=== PATIENT | female | born 1940 | race Caucasian/White ===

== ENCOUNTER 2021-10-09 14:00 | Emergency (ER) | payer OTHER, SELFPAY ==
[2021-10-09 14:02] VITALS: BP 121/71; PULSE 65; RESP 14; TEMP 36.9; O2SAT 92; BMI 26.4
--- NOTE | 2021-10-09 14:25 | EX.ED.DYSGE1 ---
HPI History of Present Illness Chief Complaint: General Illness Informant: patient and family Onset/Context/Timing Onset: Days (4) Context: Gradual Onset Timing: Continuous Quality: Weakness Location: Generalized Worsened by: Standing Relieved by: Nothing Narrative Narrative: Patient presents with 2 syncopal episodes that occurred today. Patient states she started feeling ill over the last 4 days. Patient states she feels weak all over. Patient states it is worse with standing. Patient admits to some fevers and chills. Patient also admits to breaking out into a sweat this morning. Patient admits to a cough and a mild headache. Patient states that she was recently exposed to people with COVID-19. Patient denies any chest pain or palpitations. EMS checked a blood sugar and it was normal. EMS placed the patient on oxygen because her pulse oximeter was 92% on room air on their arrival. PFSH PFS Medical History Hx TIA/stroke w/o resid Home Medications meclizine 25 mg tablet 25 mg PO TID PRN PRN VERTIGO #20 tabs 01/27/17 [Rx Last Taken Unknown] nirmatrelvir 300 mg (150 mg x2)-ritonavir 100 mg tablet,dose pack(EUA) (Paxlovid) See Rx Instructions PO .COMPLEX #30 tabs 10/09/21 [Rx Last Taken Unknown] Allergy/AdvReac Type Severity Reaction Status Date / Time No Known Allergies Allergy Verified 10/09/21 14:01 Surgical History no surgical history no surgical history Social History Smoking Status: Never smoker ROS ROS ED Constitutional Constitutional ED: Reports fever(s), subjective and sweats Eyes Eyes: Denies blurry vision or change in vision ENT ENT ED: Denies rhinorrhea or sore throat Cardiovascular Cardiovascular: Denies chest pain or palpitations Respiratory/Chest Respiratory/Chest: Reports cough; Denies dyspnea Gastrointestinal Gastrointestinal: Denies nausea or vomiting Genitourinary Genitourinary ED: Denies dysuria or hematuria Musculoskeletal Musculoskeletal: Denies back pain or neck pain Integumentary Denies abscess or rash Neurologic Neurologic: Reports headache(s); Denies weakness Allergic/Immunologic Allergic/Immunologic ED: Denies mouth swelling or urticaria EXAM Physical Exam Const Vital Signs: 10/09/21 14:02 10/09/21 14:13 10/09/21 14:51 Temperature 98.5 F Temperature Source Oral Pulse Rate 65 65 Pulse Rate [Lying] Pulse Rate [Sitting (for 1 minute prior to obtaining)] Pulse Rate [Standing (for 1 minute prior to obtaining)] Respiratory Rate 14 18 Respiratory Pattern Normal Blood Pressure 121/71 H Blood Pressure [Lying] Blood Pressure [Sitting (for 1 minute prior to obtaining)] Blood Pressure [Standing (for 1 minute prior to obtaining)] Blood Pressure Mean 87 Blood Pressure Mean [Lying] Blood Pressure Mean [Sitting (for 1 minute prior to obtaining)] Blood Pressure Mean [Standing (for 1 minute prior to obtaining)] Pulse Ox 92 Oxygen Delivery Method Room Air 10/09/21 15:24 10/09/21 16:02 Temperature Temperature Source Pulse Rate 75 Pulse Rate [Lying] 77 Pulse Rate [Sitting (for 1 minute prior to obtaining)] 77 Pulse Rate [Standing (for 1 minute prior to obtaining)] 80 Respiratory Rate 16 Respiratory Pattern Blood Pressure 124/67 H Blood Pressure [Lying] 117/63 Blood Pressure [Sitting (for 1 minute prior to obtaining)] 118/62 Blood Pressure [Standing (for 1 minute prior to obtaining)] 112/68 Blood Pressure Mean 86 Blood Pressure Mean [Lying] 81 Blood Pressure Mean [Sitting (for 1 minute prior to obtaining)] 80 Blood Pressure Mean [Standing (for 1 minute prior to obtaining)] 82 Pulse Ox 95 Oxygen Delivery Method Room Air Positive well nourished and well developed General Appearance ED: well developed HEENT Reports moist mucous membranes Neck supple and no JVD Resp normal respiratory effort and clear to auscultation bilaterally Cardio regular rate, regular rhythm and no murmurs GI normal to inspection, nondistended, normoactive bowel sounds and non-tender Palpation: soft Extremity normal to inspection General Extremety ED: Negative for edema or tenderness General Extremity: Negative for edema Neuro oriented x3, CN's II-XII intact bilaterally and no sensory deficits noted Sensorium / Orientation: alert Motor Exam: strength 5/5 throughout Psych mental status grossly normal Skin no rashes or lesions noted MDM MDM MDM Narrative Medical decision making narrative: EKG was obtained. On my interpretation, it showed a normal sinus rhythm with a rate of 68. SC interval, QRS interval, and QTc intervals were all normal. [place] was normal. There are no acute ST or T wave changes. Portable 1 view chest x-ray was obtained. On my interpretation, lung groves are clear. There is normal cardiac silhouette. Bony thorax is normal. There is no acute process noted. Radiologist also interpreted the x-ray and agrees. CBC was within normal limits. Comprehensive metabolic profile was essentially within normal limits. Anion gap was normal. High-sensitivity troponin was normal. COVID-19 rapid antigen was obtained and was positive. Alysis does not show any evidence of urinary tract infection or hematuria. Patient was given a prescription for Paxlovid. D-dimer was elevated at 1.34. PT was INR and PTT were within normal limits. Because of the elevated D-dimer, CTA of the chest was obtained. Results will be followed by the oncoming physician. Patient understood and was agreeable with the plan. All questions were answered. Lab Data Attestation: I reviewed the patient's lab results. Labs: Laboratory Results - last 24 hr 10/09/21 10/09/21 10/09/21 14:30 14:30 14:30 WBC 4.5 RBC 4.25 Hgb 13.1 Hct 38.9 MCV 91.5 MCH 30.8 MCHC 33.7 RDW Std Deviation 42.7 RDW Coeff of Yu 12.7 Plt Count 198 MPV 8.7 Immature Gran % (Auto) 0.200 Neut % (Auto) 64.0 Lymph % (Auto) 29.6 Graves % (Auto) 5.8 Eos % (Auto) 0.0 Baso % (Auto) 0.4 Absolute Neuts (auto) 2.9 Absolute Lymphs (auto) 1.34 Nucleated RBC % 0 PT Cancelled INR Cancelled APTT Cancelled D-Dimer Quant (PE/DVT) Cancelled Sodium 134 L Potassium 4.4 Chloride 102 Carbon Dioxide 28.0 Anion Gap 4 L BUN 16 Creatinine 1.02 Estim Creat Clear Calc 43.49 Est GFR (MDRD) Af Amer 67 Est GFR (MDRD) Non-Af 56 L BUN/Creatinine Ratio 15.7 Glucose 145 H Calcium 8.7 Total Bilirubin 0.30 AST 42 H ALT 31 Alkaline Phosphatase 76 Troponin I High Sens 7 Total Protein 7.0 Albumin 3.2 Globulin 3.8 Albumin/Globulin Ratio 0.8 L Urine Color Urine Clarity Urine pH Ur Specific [place] Urine Protein Urine Glucose (UA) Urine Ketones Urine Occult Blood Urine Nitrite Urine Bilirubin Urine Urobilinogen Ur Leukocyte Esterase Urine RBC Urine WBC Ur Squamous Epith Cells Urine Bacteria Urine Mucus 10/09/21 10/09/21 15:10 15:20 WBC RBC Hgb Hct MCV MCH MCHC RDW Std Deviation RDW Coeff of Yu Plt Count MPV Immature Gran % (Auto) Neut % (Auto) Lymph % (Auto) Graves % (Auto) Eos % (Auto) Baso % (Auto) Absolute Neuts (auto) Absolute Lymphs (auto) Nucleated RBC % PT 13.6 INR 1.1 APTT 33.0 D-Dimer Quant (PE/DVT) 1.34 H* Sodium Potassium Chloride Carbon Dioxide Anion Gap BUN Creatinine Estim Creat Clear Calc Est GFR (MDRD) Af Amer Est GFR (MDRD) Non-Af BUN/Creatinine Ratio Glucose Calcium Total Bilirubin AST ALT Alkaline Phosphatase Troponin I High Sens Total Protein Albumin Globulin Albumin/Globulin Ratio Urine Color Straw Urine Clarity Clear Urine pH 7.0 Ur Specific [place] 1.005 Urine Protein Negative Urine Glucose (UA) Normal Urine Ketones Negative Urine Occult Blood Negative Urine Nitrite Negative Urine Bilirubin Negative Urine Urobilinogen Normal Ur Leukocyte Esterase Negative Urine RBC 0 SEEN Urine WBC 0 SEEN Ur Squamous Epith Cells 0 SEEN Urine Bacteria 0 SEEN Urine Mucus 0 SEEN Radiography Chest X-Ray - ED: 1 View, Read by ED Physician, Read by Radiologist and No Acute Disease Diagnostic Testing: Clinical Impression(s) from Imaging Studies Chest X-Ray 10/09/21 14:40 IMPRESSION: No acute cardiopulmonary process identified. Electronically Signed: Kandice Alcala MD at 15:07 EDT , EKG Initial EKG: Attestation: I personally reviewed and interpreted this EKG as follows: Interpretation: Sinus Rhythm (68) and No Acute Injury Pattern Prior EKG tracings: available for review Prior: Unchanged (01/26/2017) Discharge Plan Triage Chief Complaint: General Illness Other Complaint: Syncope ED Provider: Matt Jack Dx/Rx/DC Orders Clinical Impression: COVID-19, Episode of generalized weakness Instructions: Coronavirus Disease 2019 (COVID-19): Caring for Yourself or Others Prescriptions: New Paxlovid (EUA) 300 mg (150 mg x 2)-100 mg tablets,dose pack See Rx Instructions .ROUTE .COMPLEX Qty: 30 0RF Rx Instructions: take TWO 150 mg tablets of nirmatrelvir with ONE 100 mg tablet of ritonavir twice daily for 5 days No Action meclizine 25 MG tablet 25 mg PO TID PRN PRN (Reason: VERTIGO) Qty: 20 0RF Primary Care Provider: Oziel Parks Referrals: Oziel Parks DO [Primary Care Provider] - 5-7 Days Disposition Disposition: Home, Self Care
--- NOTE | 2021-10-09 14:28 | EKG12_ITS ---
Test Reason : Blood Pressure : / mmHG Vent. Rate : 068 BPM Atrial Rate : 068 BPM P-R Int : 158 ms QRS Dur : 076 ms QT Int : 396 ms P-R-T Axes : 079 055 082 degrees QTc Int : 421 ms Normal sinus rhythm Normal ECG Confirmed by BRIANDA GUEVARA, MARCO ANTONIO ([id number]), editor index AGA CLARK ([id number]) on 10/10/2021 1:47:27 PM Referred By: Confirmed By:MARCO ANTONIO LAMAR MD
--- NOTE | 2021-10-09 14:40 | RAD_ITS ---
HISTORY: Cough. TECHNIQUE: XR Chest 1 View. COMPARISON: 01/26/2017. FINDINGS: CARDIOMEDIASTINAL BORDERS: Cardiac silhouette within normal limits in size. Mediastinal contour unremarkable. LUNGS: Radiographically clear. PLEURA: No pleural effusion or pneumothorax seen. OSSEOUS STRUCTURES: Unremarkable. RAD/Chest 1 View (Portable) IMPRESSION: No acute cardiopulmonary process identified. Electronically Signed: Kandice Alcala MD at 15:07 EDT ,
[2021-10-09 14:44] LABS: Absolute Lymphocyte Count 1.34 X10^3/uL (0.83-4.51); Absolute Neutrophil Count 2.9 X10^3/uL (2.0-7.7); Basophil# 0.02 X10^3/uL; Basophil% 0.4 % (0-1); Hematocrit 38.9 % (37-47); Hemoglobin 13.1 g/dL (12.0-15.0); Lymphocyte # 1.34 X10^3/ul (0.83-4.51); Lymphocyte % 29.6 % (19-41); Mean Corp Hgb Conc 33.7 g/dL (32-36); Mean Corpuscular Hgb 30.8 pg (27.0-32.0); Mean Corpuscular Volume 91.5 fL (81-99); Mean Platelet Vol. 8.7 fl (6.2-12.0); Monocyte# 0.26 X10^3/uL; Monocyte% 5.8 % (0-10); NRBC Flagged by Analyzer 0 % (0-5); Neutrophil # 2.89 X10^3/uL (2.7-7.7); Platelet Count 198 K/mm3 (150-450); RBC Distribution Width CV 12.7 % (11.6-14.6); RBC Distribution Width SD 42.7 fl (35.1-43.9); Red Blood Count 4.25 M/mm3 (4.2-5.4); White Blood Count 4.5 K/mm3 (4.4-11.0)
[2021-10-09 14:51] VITALS: PULSE 65; RESP 18
[2021-10-09] MEDS: Ipratropium/Albuterol Sulfate 3 ML AMPUL.NEB INHALATION (14:51)
[2021-10-09 15:09] LABS: ALB/GLOB Ratio 0.8 RATIO (0.9-2.4); AST(SGOT) 42 U/L (15-37); Alanine Aminotransfer ALT/SGPT 31 U/L (13-56); Albumin, Serum 3.2 g/dL (3.2-5.0); Alkaline Phosphatase 76 U/L (45-117); Anion Gap 4 (5-15); BUN 16 mg/dL (7-18); BUN/Creat Ratio 15.7 RATIO (10-20); Calcium,Total 8.7 mg/dL (8.5-10.1); Chloride 102 mmol/L (98-107); Creatinine, Serum 1.02 mg/dL (0.55-1.02); EST Glomerular Filtration Rate 56 mL/min (>60); Est Glom Filt Rate - Afr Amer 67 mL/min (>60); Estimated Creatinine Clearance 43.49 ml/min; Globulin 3.8 g/dL (2.2-4.2); Glucose 145 mg/dL (74-106); Potassium 4.4 mmol/L (3.5-5.1); Sodium Level 134 mmol/L (136-145); Troponin-I HS 7 pg/mL (3.0-54.0)
[2021-10-09 15:24] VITALS: BP 112/68; BP 117/63; BP 118/62; PULSE 77; PULSE 80
[2021-10-09 15:26] VITALS: O2SAT 98
[2021-10-09 15:27] LABS: Bacteria 0 SEEN /hpf (None Seen); Mucous, Urine 0 SEEN /hpf (<or=2+); Red Blood Cells-Urine 0 SEEN /hpf (0-5); Squamous Epithelial Cells - UA 0 SEEN /hpf (5-10); White Blood Cells 0 SEEN /hpf (0-5)
[2021-10-09 15:31] LABS: Color, Urine Straw (Yellow); Glucose, Dipstick Normal (Normal); Ketone-Dipstick Negative (Negative); Leukocyte Esterase-Dipstick Negative /ul (Negative); Nitrite-Dipstick Negative (Negative); Occult Blood-Urine Negative /ul (Negative); Protein-Dipstick Negative (Negative); Specific Gravity, Urine 1.005 (1.002-1.030); Urine Bilirubin Dipstick Negative (Negative); Urine Clarity Clear (Clear); Urine Urobilinogen Normal (Normal)
[2021-10-09 15:51] LABS: International Normalized Ratio 1.1; Prothrombin Time (Protime)PT. 13.6 SECONDS (11.7-14.9)
[2021-10-09 16:02] VITALS: BP 124/67; PULSE 75; RESP 16; O2SAT 95
[2021-10-09 16:27] LABS: D-Dimer Quantitative (DVT/PE) 1.34 FEU/ug/m (0.27-0.49)
--- NOTE | 2021-10-09 16:27 | CT_ITS ---
INDICATION: Elevated D-dimer EXAMINATION: CTA Chest WO/W Contrast Injection TECHNIQUE: Helically acquired images were obtained of the chest following administration of IV contrast. A radiation dose optimization technique was used for this scan. 3D postprocessing images including MIPS were reviewed. IV Contrast dosage and agent: IV 75mL Isovue-370 COMPARISON: 01/26/2017. FINDINGS: Lungs: Unremarkable Mediastinum: The cardiomediastinal silhouette is not enlarged. No mediastinal, hilar or axillary adenopathy. The thoracic aorta is unremarkable. No obvious filling defect seen within the visualized pulmonary arteries. Pleura: Unremarkable Bones/Soft tissues: Mild scattered degenerative changes of the visualized spine. Upper abdomen: The bilateral kidneys are partially imaged and demonstrate bilateral parapelvic cysts versus hydronephrosis. CT/CTA Chest W/WO Contrast IMPRESSION: No acute abnormalities in the chest. Specifically, no evidence of acute pulmonary emboli to the segmental level. Partial imaging of the kidneys demonstrate bilateral parapelvic cysts versus hydronephrosis. If clinically concerned for urinary obstruction, consider CT urogram. Electronically Signed: Hipolito Manjarrez MD at 16:57 EDT ,
[2021-10-09 17:46] VITALS: O2SAT 97
== END 2021-10-09 17:47 | disposition home or self-care (01) ==
PROVIDERS: Emergency Provider Emergency Medicine; PCP Family Medicine; Visit Provider Emergency Medicine
DX: U07.1 COVID-19 (principal); Z86.73 Personal history of transient ischemic attack (TIA), and cerebral infarction without residual deficits
CPT/HCPCS: 71045; 71275; 80053; 81001; 84484; 85025; 85379; 85610; 85730; 87428; 93005; 94640; 99285; Q9967; A4216

== ENCOUNTER → 2023-02-19 | Outpatient (CLI) | payer SELFPAY ==
--- NOTE | 2023-02-19 08:08 | CT_ITS ---
STUDY: CTA HEAD AND NECK WITH CONTRAST REASON FOR EXAM: Female, 82 years old. DIZZINESS, SYNCOPE RADIATION DOSAGE (If Supplied By Facility): CTDIvol = ( 28.91 ) mGy, DLP = ( 1394.37 ) mGycm TECHNIQUE: CT angiography was performed with a multi-detector CT scanner. Data acquisition was obtained from the skull base through the vertex following intravenous administration of IV 100mL Isovue-370. MIP images were reconstructed from the axial data set. Post-processing of the angiographic images was performed, with multiplanar reformation and 3D reconstruction. Individualized dose optimization techniques were used for this CT. COMPARISON: No relevant priors. FINDINGS: Normal bilateral petrous carotid arteries. There is calcified plaque formation of the right cavernous carotid artery, without a cross-sectional luminal stenosis. There is calcified plaque formation of the left cavernous carotid artery, without a cross-sectional luminal stenosis. Normal right A1 segments of the anterior cerebral artery. Normal left A1 segments of the anterior cerebral artery. Normal intact anterior communicating artery (ACOM). Normal bilateral A2 segments of the anterior cerebral arteries. Normal right M1 and M2 segments of the middle cerebral arteries, with a normal M1 bifurcation. Normal left M1 and M2 segments of the middle cerebral arteries, with a normal M1 bifurcation. Normal right posterior communicating artery (PCOM). Normal left posterior communicating artery (PCOM). Normal bilateral vertebral arteries. Normal basilar artery with a normal basilar bifurcation. The visualized bilateral superior cerebellar (SCA) arteries are normal. Normal bilateral P1, P2 and visualized P3 segments of the posterior cerebral arteries. There is no demonstrated aneurysm of the [place]. Mild cerebral atrophy. AORTIC ARCH: Normal visualized aortic arch. Normal origins of the brachiocephalic, left common carotid, and left subclavian arteries. RIGHT CAROTID ARTERIES: Normal right common carotid artery (CCA). Normal right common carotid bulb. Normal origin of the right internal carotid (ICA) artery without a hemodynamically significant stenosis. Normal visualized cervical portion of the right internal carotid artery. Normal origin of the right external carotid artery (ECA). LEFT CAROTID ARTERIES: Normal left common carotid artery (CCA). Normal left common carotid bulb. Normal origin of the left internal carotid (ICA) artery without a hemodynamically significant stenosis. Normal visualized cervical portion of the left internal carotid artery. Normal origin of the left external carotid artery (ECA). VERTEBRAL ARTERIES: Normal bilateral vertebral arteries. CT/CTA Head AND Neck W/ Contrast IMPRESSION: Normal CTA Head and neck with contrast. Electronically Signed: Benjamin Philip MD at 9:43 EST ,
[2023-02-19 08:37] LABS: CREATININE FINGERSTICK < 1.0 mg/dL (0.55-1.02); EGFR FINGERSTICK > 60.0000 mL/min (>60)
== END | disposition home or self-care (01) ==
PROVIDERS: PCP Family Medicine; Referring Provider Nurse Practitioner Family; Visit Provider Nurse Practitioner Family
DX: R42 Dizziness and giddiness (principal); R55 Syncope and collapse
CPT/HCPCS: 70496; 70498; Q9967

== ENCOUNTER → 2023-04-02 | Outpatient (CLI) | payer SELFPAY ==
--- NOTE | 2023-04-02 07:52 | ECHOD_ITS ---
Reason For Study: Syncope Procedure This was a 2D Doppler, Color Flow transthoracic echocardiogram. Exam performed in department. Left Ventricle Normal LV size. Left ventricular systolic function is normal. The estimated ejection fraction is 60 %. Stage 1 diastolic dysfunction. No regional wall motion abnormalities noted. Right Ventricle Normal RV size. Normal systolic function. Atria Normal left atrium. Normal right atrium. Mitral Valve There is Mild focal posterior mitral annular calcification. Trivial mitral valve insufficiency. Tricuspid Valve Normal tricuspid valve. Mild (1+) tricuspid valve insufficiency. Right ventricular systolic pressure estimated to be 30 mmHg. Aortic Valve Trisinus/trileaflet aortic valve. Mild focal aortic valve thickening. Mild focal aortic valve calcification. Aortic sclerosis, no stenosis. Mild (1+) aortic valve insufficiency. Pulmonic Valve The pulmonic valve is not well visualized. Trivial pulmonic valve insufficiency. Great Vessels Normal aortic root. Pericardium/Pleural No pericardial effusion. MMode/2D Measurements & Calculations LVIDd: 4.1 cm IVSd: 0.88 cm Ao root diam: 3.4 cm LVIDs: 2.5 cm LVPWd: 0.95 cm LA dimension: 3.9 cm RVDd: 3.7 cm FS: 39.9 % LAV(MOD-bp): 52.9 ml LVAd ap4: 30.2 cm2 SV(MOD-sp4): 52.8 ml LAV(MOD-bp) Indexed: 29.4 ml/m2 LVLd ap4: 8.1 cm LAV(MOD-sp2): 56.1 ml EDV(MOD-sp4): 89.9 ml LAV(MOD-sp4): 49.5 ml EDV(sp4-el): 95.9 ml LVAs ap4: 17.8 cm2 LVLs ap4: 7.0 cm ESV(MOD-sp4): 37.1 ml ESV(sp4-el): 38.3 ml EF(MOD-sp4): 58.8 % EF(sp4-el): 60.1 % SV(sp4-el): 57.6 ml LA A4 area: 18.2 cm2 RA A4 area: 14.4 cm2 TAPSE: 2.0 cm Time Measurements MV dec time: 0.28 sec Doppler Measurements & Calculations MV E max bernardo: 78.4 cm/sec Lat Peak E' Bernardo: 6.3 cm/sec Med Peak E' Bernardo: 6.4 cm/sec MV A max bernardo: 103.9 cm/sec E/E' lat: 12.5 E/E' med: 12.2 MV E/A: 0.75 MV V2 max: 108.4 cm/sec MV P1/2t max bernardo: 85.8 cm/sec Ao V2 max: 96.3 cm/sec MV max P.7 mmHg MV P1/2t: 93.4 msec Ao max P.7 mmHg MV V2 mean: 60.6 cm/sec MV dec slope: 268.8 cm/sec2 MV mean P.7 mmHg MV V2 VTI: 28.4 cm MVA(P1/2t): 2.4 cm2 AI max bernardo: 437.3 cm/sec LV V1 max: 66.8 cm/sec MR max bernardo: 525.7 cm/sec AI max P.5 mmHg LV V1 max P.8 mmHg MR max P.5 mmHg AI dec slope: 273.7 cm/sec2 AI P1/2t: 468.0 msec PA V2 max: 69.4 cm/sec TR max bernardo: 259.3 cm/sec TR max P.9 mmHg ECHO/Echo Complete Interpretation Summary The estimated ejection fraction is 60 %. Stage 1 diastolic dysfunction. There is Mild focal posterior mitral annular calcification. Mild (1+) tricuspid valve insufficiency. Aortic sclerosis, no stenosis. Mild (1+) aortic valve insufficiency. No previous echo to compare Ordering Physician: Brenda Cueto Referring Physician: Brenda Cueto Performed By: Ryan Wilson RCS
== END | disposition home or self-care (01) ==
LOC: CVS 07:52
PROVIDERS: PCP Family Medicine; Referring Provider Nurse Practitioner Family; Visit Provider Nurse Practitioner Family
DX: R55 Syncope and collapse (principal); R42 Dizziness and giddiness
CPT/HCPCS: 93306

== ENCOUNTER → 2023-05-04 | Outpatient (CLI) | payer SELFPAY ==
[2023-05-04 09:28] LABS: Hematocrit 39.3 % (37-47); Hemoglobin 13.1 g/dL (12.0-15.0); Mean Corp Hgb Conc 33.3 g/dL (32-36); Mean Corpuscular Hgb 30.8 pg (27.0-32.0); Mean Corpuscular Volume 92.3 fL (81-99); Mean Platelet Vol. 8.1 fl (6.2-12.0); Platelet Count 272 K/mm3 (150-450); RBC Distribution Width CV 12.4 % (11.6-14.6); RBC Distribution Width SD 41.9 fl (35.1-43.9); Red Blood Count 4.26 M/mm3 (4.2-5.4); White Blood Count 6.4 K/mm3 (4.4-11.0)
[2023-05-04 09:42] LABS: Anion Gap 3 (5-15); BUN 16 mg/dL (7-18); BUN/Creat Ratio 16.8 RATIO (10-20); Calcium,Total 9.6 mg/dL (8.5-10.1); Chloride 109 mmol/L (98-107); Creatinine, Serum 0.95 mg/dL (0.55-1.02); EST Glomerular Filtration Rate 60 mL/min (>60); Est Glom Filt Rate - Afr Amer 73 mL/min (>60); Glucose 98 mg/dL (74-106); Potassium 3.9 mmol/L (3.5-5.1); Sodium Level 139 mmol/L (136-145)
--- NOTE | 2023-05-04 16:50 | TILTTABLE_ITS ---
Staff Staff: Fartun Monson and Brie Cevallos Summary Pre Test Resting HR: 74 Pre Test Resting BP: 140/79 Minimum Test HR: 65 Maximum Test HR: 77 Minimum Test BP: 115/78 Maximum Test BP: 143/85 Reason for Test Termination: Reached Maximum Test Time Physician Tilt Table Report Patient's Physicians Primary Care Physician: Oziel Parks Indications/Diagnosis: Presyncope Procedure Comments: Patient presented to the noninvasive lab in the p ostabsorptive nonsedated state. Informed consent was obtained. Initial EKG was obtained which demonstrated a heart rate of 68 bpm and a resting blood pressure of 140/79 mmHg. The patient was then put in the 70 degree head upright tilt position and monitored for the requisite to 20 minutes. Continuous EKG monitoring was performed. The patient maintained sinus rhythm throughout the recording with blood pressures which were noted to be within fairly normal limits. No significant variations in heart rate or blood pressure or symptoms were noted. After appropriate period of time patient was put back in the recumbent position and recovered appropriately. No nitroglycerin was given. Summary: Negative head upright tilt table with no evidence of orthostatic hypotension or presyncope.
[2023-05-04 16:54] VITALS: BP 115/78; BP 140/79; BP 143/85
== END | disposition home or self-care (01) ==
PROVIDERS: PCP Family Medicine; Referring Provider Nurse Practitioner Family; Visit Provider Nurse Practitioner Family
DX: R42 Dizziness and giddiness (principal); R55 Syncope and collapse
CPT/HCPCS: 36415; 80048; 85027; 93660; J7040; A4216

== ENCOUNTER 2024-10-27 08:40 | Emergency (ER) | payer OTHER, SELFPAY ==
[2024-10-27 08:41] VITALS: BP 132/68; PULSE 68; RESP 16; TEMP 35.8; O2SAT 100; BMI 28.1
--- NOTE | 2024-10-27 09:05 | EKG12_ITS ---
Test Reason : BACK PAIN Blood Pressure : */* mmHG Vent. Rate : 62 BPM Atrial Rate : 62 BPM P-R Int : 172 ms QRS Dur : 74 ms QT Int : 394 ms P-R-T Axes : 53 20 88 degrees QTcB Int : 399 ms Normal sinus rhythm Normal ECG Confirmed by Juan Jose Henry ([id number]), commercial production editor AGA CLARK ([id number]) on 10/31/2024 9:52:40 AM Referred By: Confirmed By: Juan Jose Henry
--- NOTE | 2024-10-27 09:09 | EDS_ITS ---
HPI History of Present Illness Chief Complaint: Back Narrative Narrative: Patient is an 84-year-old female presenting to the emergency department for back pain since Wednesday of last week. Patient denies any trauma to her back. She denies any history of back pain. States that the back pain has been on and off for the past week but worsened this morning. She does state that when the back pain would get better throughout the week she would be fairly active with gardening or vacuuming her house which may have exacerbated the pain. She denies any red flag back pain signs including IV drug use, fevers, bowel or bladder incontinence or retention, saddle anesthesia, numbness or weakness in her legs. Denies cancer history or recent weight loss. She states that last night she took Tylenol for the pain and has been using Bengay. Otherwise no medications. She did go to the chiropractor 2 days ago and she felt better initially after this appointment. She states this morning when she tried to get out of bed she had difficulty due to the back pain reporting that it was spasmi ng. She states that she was in a lot of pain and felt lightheaded and diaphoretic. Her reports that she did lose consciousness momentarily. She did not fall. She denies any chest pain, shortness of breath, palpitations. Denies any headache. Denies any fever or chills. Denies abdominal pain, nausea, vomiting, diarrhea. The only symptom she is complaining of at time of evaluation is back pain. [facility] Medical History Allergic contact dermatitis of hand Tinea pedis, left Hx TIA/stroke w/o resid Home Medications ?Medication ?Instructions ?Recorded ?Last Taken ?Type coenzyme Q10 30 mg capsule (Co 30 mg PO DAILY 10/27/24 Unknown History Q-10) ginkgo biloba 40 mg tablet 40 mg PO DAILY 10/27/24 Unk nown History glucosamine HCl 500 mg tablet 500 mg PO DAILY 10/27/24 Unknown History lidocaine 5 % topical patch 1 patch topical DAILY PRN pain #15 10/27/24 Unknown Rx (Lidoderm) ea methocarbamol 500 mg tablet 500 mg PO BID PRN pain #7 tabs 10/27/24 Unknown Rx nf billberry 10/27/24 Unknown History pyridoxine (vitamin B6) 25 mg 25 mg PO DAILY 10/27/24 Unknown History tablet (Vitamin B-6) Allergy/AdvReac Type Severity Reaction Status Date / Time No Known Allergies Allergy Verified 10/27/24 08:40 Social History Smoking Status: Never smoker ROS ROS ED ROS Narrative see HPI EXAM Physical Exam Narrative Exam Narrative: Vital signs: Reviewed General: Alert and orientedx3. No acute distress HEENT: Head is normocephalic and atraumatic, sinuses nontender, pupils equal round and reactive. Nares are patent. Oropharynx and throat exams normal. Neck: Supple without lymphadenopathy nontender. No midline cervical spinal tenderness to palpation. No step-offs or deformities. Cardiovascular: Regular rate and rhythm, no murmurs. No rubs or gallops. Normal S1 and S2 Respiratory: Clear to auscultation bilaterally. No wheezes, rales, rhonchi Abdominal: Soft and nontender. Normal bowel sounds. No guarding or rebound. Nonsurgical abdomen Extremities: No midline thoracic or lumbar spinal tenderness to palpation. Tenderness to palpation of the right lower lumbar paraspinal muscles. No tenderness to paraspinal lower lumbar left muscles. No erythema or warmth. No step-offs or deformities. Hips stable and nontender to palpation. DP and PT pulses are intact bilaterally. Sensation intact in bilateral lower extremities. Able to flex and extend at bilateral hips and knees. Skin: No rash or redness. Neurological: Cranial nerves II through XII are grossly intact. Normal strength and sensation. Normal cerebellar function The rest of the physical exam is unremarkable Const Vital Signs: 10/27/24 08:41 Temperature 96.4 F L Temperature Source Temporal Pulse Rate 68 Respiratory Rate 16 Blood Pressure 132/68 H Blood Pressure Mean 89 Pulse Ox 100 Oxygen Delivery Method Room Air MDM MDM MDM Narrative Medical decision making narrative: Patient is an 84-year-old female presenting to the emergency department for back pain. Patient was seen and examined. Vitals are stable. Patient resting in bed comfortably no acute distress. Patient has no midline back pain on exam. It is mainly paraspinal lumbar on the right. No red flag back pain signs. No trauma or falls. At this time, I do not think CT imaging is indicated given this is likely MSK. With the episode of lightheadedness and syncope will obtain labs to assess for anemia, electrolyte disturbance, ACS and EKG. patient states that she was in significant pain at that time due to the spasms and I suspect that it was likely due to the pain. She states that she has had syncopal episodes before mainly when she is dehydrated the last one being about a year ago. I do not suspect intracranial abnormality including stroke as the cause given she is neuro intact. I do not suspect aortic pathology including AAA or aortic dissection given she has no chest pain, shortness of breath, abdominal pain. She is not tachycardic. Pulses are intact throughout. Neurologic exam is normal. EKG with normal sinus rhythm. No ischemic changes. No ST elevation or depression. No abnormal T wave inversions. No dysrhythmia. Patient given toradol, robaxin and lidoderm patch for analgesia. CBC with no leukocytosis and a normal hemoglobin. BMP with no significant abnormalities. Troponin within normal limits. With negative labs and EKG, I do think the patient's lighth eadedness and syncopal episode was likely due to the pain. She has had this happen her before. Patient ambulated with walker without difficulty. Patient does have a walker at home that she can use. She was educated on taking Tylenol and Motrin [id number] scheduled for pain control and wearing mild Lidoderm patches. She was given a prescription for Robaxin but given education that this can cause lightheadedness, dizziness and increased her risk for falls. She understands. Patient discharged from the Emergency Department. I do not feel that the patient's evaluation reveals any acute reason for admission at this time. I instructed them to either follow-up with their primary care physician or promptly return to the Emergency Department for reevaluation should symptoms worsen or new symptoms develop. I explained what symptoms would indicate the need to return to the emergency department. Shared decision making was used. The patient voiced understanding of the treatment plan and is agreeable with it. Clinical impression Back pain History & Record Review Discussion w/independent historian: Patient and Family Lab Data Attestation: I reviewed the patient's lab results. Labs: Laboratory Results - last 24 hr 10/27/24 09:15 WBC 10.6 RBC 4.13 L Hgb 12.8 Hct 37.6 MCV 91.0 MCH 31.0 MCHC 34.0 RDW Std Deviation 41.1 RDW Coeff of Yu 12.3 Plt Count 263 MPV 8.0 Immature Gran % (Auto) 0.500 Neut % (Auto) 75.7 H Lymph % (Auto) 17.6 L Coos % (Auto) 5.5 Eos % (Auto) 0.4 Baso % (Auto) 0.3 Absolute Neuts (auto) 8.0 H Absolute Lymphs (auto) 1.87 Nucleated RBC % 0 Sodium 139 Potassium 3.9 Chloride 103 Carbon Dioxide 24.1 Anion Gap 12 BUN 19 Creatinine 0.92 Estim Creat Clear Calc 48.29 L Est GFR (MDRD) Non-Af 62 BUN/Creatinine Ratio 20.7 H Glucose 80 Calcium 9.7 Troponin T High Sens 13 Discharge Plan Triage Chief Complaint: Back ED Provider: Denia Aguilar Dx/Rx/DC Orders Clinical Impression: Back pain without radiation Instructions: ED Back Care Tips, ED Back Exercises, Lumbar, ED Back Spra in/Strain Prescriptions: New methocarbamol 500 mg tablet 500 mg PO BID PRN (Reason: pain) Qty: 7 0RF Rx Instructions: Be very careful taking this medication. It can cause lightheadedness, dizziness, drowsiness and cause you to fall. lidocaine [Lidoderm] 5 % adhesive patch,medicated 1 patch topical DAILY PRN (Reason: pain) Qty: 15 0RF Rx Instructions: leave on most painful area for up to 12 hrs No Action nf billberry ginkgo biloba 40 mg tablet 40 mg PO DAILY Rx Instructions: give with meal/snack coenzyme Q10 [Co Q-10] 30 mg capsule 30 mg PO DAILY glucosamine HCl 500 mg tablet 500 mg PO DAILY Rx Instructions: administer with a meal pyridoxine (vitamin B6) [Vitamin B-6] 25 mg tablet 25 mg PO DAILY Primary Care Provider: Brenda Cueto [employer] WORK[employer] HELPER Referrals: Oziel Parks, DO [Non-Staff] - 2 Days Activity Restrictions/Additional Instructions: Take ibuprofen and Tylenol at home scheduled [id number] to help with your pain. Apply the Lidoderm patch to your right lower back and remove after 12 hours. I did prescribe you a muscle relaxer but be careful taking this medication as it can cause lightheadedness, dizziness, drowsiness and increases the chances of you falling. Your evaluation in the Emergency Department did not reveal any acute reason for admission. However, I want to emphasize that you may be early in the course of a disease process or illness even if it is not present. For this reason you should follow-up within 24 hours for reevaluation with either your primary care physician or if necessary back here in the Emergency Department. You should return to the Emergency Department immediately if your symptoms worsen or new symptoms develop. Print Language: Macedonian Disposition Disposition: Home, Self Care
[2024-10-27] MEDS: Lidocaine 5% Patch 1 PATCH TOPICAL (09:24)
[2024-10-27 09:25] LABS: Hematocrit 37.6 % (37-47); Hemoglobin 12.8 g/dL (12.0-15.0); Immature Granulocytes Count 0.050 X10^3/uL (0.0-0.0); Mean Corp Hgb Conc 34.0 g/dL (32-36); Mean Corpuscular Volume 91.0 fL (81-99); Mean Platelet Vol. 8.0 fl (6.2-12.0); NRBC Flagged by Analyzer 0 % (0-5); Platelet Count 263 K/mm3 (150-450); RBC Distribution Width CV 12.3 % (11.6-14.6); RBC Distribution Width SD 41.1 fl (35.1-43.9); Red Blood Count 4.13 M/mm3 (4.2-5.4); White Blood Count 10.6 K/mm3 (4.4-11.0)
[2024-10-27 10:05] LABS: Anion Gap 12 (5-15); BUN 19 mg/dL (4-19); BUN/Creat Ratio 20.7 RATIO (10-20); Calcium,Total 9.7 mg/dL (7.6-11.0); Carbon Dioxide 24.1 mmol/L (21.0-32.0); Chloride 103 mmol/L (98-108); Estimated Creatinine Clearance 48.29 ml/min (50-250); Glucose 80 mg/dL (70-99); Potassium 3.9 mmol/L (3.3-5.1); Troponin T High Sensitivity 13 ng/L (<=14)
[2024-10-27 11:49] VITALS: BP 128/99; PULSE 69; RESP 18; TEMP 36.6; O2SAT 100
== END 2024-10-27 11:50 | disposition home or self-care (01) ==
PROVIDERS: Emergency Provider Student in an Organized Health Care Education/Training Program; PCP Nurse Practitioner Family; Visit Provider Student in an Organized Health Care Education/Training Program
DX: M54.9 Dorsalgia, unspecified (principal); Z86.73 Personal history of transient ischemic attack (TIA), and cerebral infarction without residual deficits
CPT/HCPCS: 80048; 84484; 85025; 93005; 96374; 99284; A4216